=== PATIENT | male | born 1995 | race Caucasian/White ===

== ENCOUNTER 2025-06-01 19:45 | Emergency (ER) | payer SELFPAY ==
[2025-06-01 19:48] VITALS: BP 168/106
[2025-06-01 20:11] VITALS: BMI 22.9
[2025-06-01 20:12] VITALS: BP 170/102
[2025-06-01 21:38] VITALS: BP 147/104
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
== END 2025-06-01 21:58 | disposition home or self-care (01) ==
LOC: EMR 19:45
PROVIDERS: EMERGENCY PHYSICIAN Emergency Medicine
DX: S09.90XA Unspecified injury of head, initial encounter (principal); V43.52XA Car driver injured in collision with other type car in traffic accident, initial encounter; Y92.411 Interstate highway as the place of occurrence of the external cause
CPT/HCPCS: 99282